=== PATIENT | female | born 1995 | race Caucasian/White ===

== ENCOUNTER 2024-01-15 18:57 | Emergency (ER) | payer MEDICAID ==
[~2024-01-15] VITALS: Ht 165.1 cm; Wt 104.0 kg
[2024-01-15 19:07] VITALS: O2SAT 98
[2024-01-15] MEDS ORDERED: DIPH28.33 TP (19:26)
[2024-01-15 19:34] VITALS: BP 124/75; PULSE 78; RESP 18; TEMP 98
== END 2024-01-15 19:40 | disposition home or self-care (01) ==
LOC: ER 18:57
DX: R21 Rash and other nonspecific skin eruption (principal)
CPT/HCPCS: 99282

== ENCOUNTER 2024-01-25 15:22 | Emergency (ER) | payer MEDICAID ==
[~2024-01-25] VITALS: Ht 162.6 cm; Wt 91.0 kg
[~2024-01-25 15:22] MED LIST: DIPH28.33 TP
[2024-01-25 15:30] VITALS: O2SAT 99
[2024-01-25] MEDS ORDERED: ACETAMINOPHEN 325MG TABLET PO ONE (15:45)
[2024-01-25] MEDS ORDERED: KETOROLAC 30MG/ML VIAL IM ONE (16:00)
[2024-01-25 16:36] LABS: BASOPHILS % 0.4 % (0.0-2.0); EOSINOPHILS % 0.9 % (0.0-5.0); HEMATOCRIT. 37.1 % (36.0-48.0); HEMOGLOBIN. 12.3 g/dL (12.0-16.0); LYMPHOCYTES % 13.7 % (20.0-50.0); MEAN CORPUSCULAR HEMOGLOBIN 28.6 pg (28.0-32.0); MEAN CORPUSCULAR HGB CONC 33.1 g/dL (31.0-37.0); MEAN CORPUSCULAR VOLUME 86.3 fL (81.0-99.0); MEAN PLATELET VOLUME 7.3 fl (7.4-10.4); MONOCYTES % 13.8 % (2.0-8.0); NEUTROPHILS % 71.2 % (40.0-76.0); PLATELET 250 x1000/uL (130-400); RED CELL DISTRIBUTION WIDTH 15.1 % (11.6-14.6); WHITE BLOOD COUNT 4.8 x1000/uL (4.5-11.0)
[2024-01-25 18:07] LABS: ALANINE AMINOTRANSFERASE 13 IU/L (10-49); ALBUMIN 4.3 g/dL (3.2-4.8); ASPARTATE AMINOTRANSFERASE 21 IU/L (<34); BILIRUBIN TOTAL 0.2 mg/dL (0.1-1.0); CALCIUM 8.5 mg/dL (8.7-10.4); CARBON DIOXIDE 24 mEq/L (21-32); CHLORIDE 105 mEq/L (98-107); CREATININE 0.7 mg/dL (0.6-1.0); GLUCOSE 91 mg/dL (70-105); POTASSIUM 3.7 mEq/L (3.5-5.1); PROTEIN TOTAL 7.5 g/dL (6.0-8.3); SODIUM 134 mEq/L (136-145); UREA NITROGEN BLOOD 8 mg/dL (9-23)
[2024-01-25] MEDS ORDERED: ACET-2708 MT (18:50)
[2024-01-25] MEDS: ACETAMINOPHEN 325MG TABLET PO NR (19:07)
[2024-01-25] MEDS: KETOROLAC 30MG/ML VIAL IM NR (19:07)
[2024-01-25 19:13] LABS: CLARITY URINE CLEAR (CLEAR); COLOR URINE YELLOW (YELLOW); GLUCOSE URINE NEGATIVE (NEGATIVE); KETONES URINE NEGATIVE (NEGATIVE); LEUKOCYTE ESTERASE URINE 1+ (NEGATIVE); NITRITE URINE NEGATIVE (NEGATIVE); OCCULT BLOOD URINE 2+ (NEGATIVE); PH URINE 6.5 (4.5-8.0); PROTEIN URINE NEGATIVE (NEGATIVE); SPECIFIC GRAVITY URINE 1.009 (1.005-1.030)
[2024-01-25 19:32] LABS: BACTERIA URINE 1+; SQUAMOUS EPITHELIAL CELL URINE 1+ /lpf (RARE/1+)
[2024-01-25] MEDS ORDERED: CEPH500T MT (19:42)
[2024-01-25 20:08] VITALS: BP 129/82; PULSE 82; RESP 18; TEMP 98.2
== END 2024-01-25 20:30 | disposition home or self-care (01) ==
LOC: ER 15:22
DX: B34.9 Viral infection, unspecified (principal); R10.11 Right upper quadrant pain; Z98.890 Other specified postprocedural states
CPT/HCPCS: 99285; 76705; 71045; 80053; 81003; 81025; 83690; 85025; 36415; 96372; J1885